=== PATIENT | female | born 1975 | race Caucasian/White ===

== ENCOUNTER → 2016-11-14 | Outpatient (CLI) | payer BC ==
[~2016-11-14] MED LIST: AMOXICILLIN500 M2 PO; AMOXICILLIN500 MG PO; AMOXIL250 MG/5 M PO; AMOXIL500 M1 PO; AUGMENTIN 875 M1 TAB PO; AUGMENTIN 875875 MG PO; BENTYL10 MG PO; CLARITIN10 MG PO; CORDROL20 MG PO; CYMBALTA30 MG PO; DEPLIN7.5 MG PO; DIFLUCAN150 MG PO; DIVALPROEX SOD500 M1 PO; Fioricet 325 MG1 TAB PO; HYDROCODONE BIT1 T11 PO; IBU-8800 MG PO; LEVOFLOXACIN500 MG PO; LITHIUM CARBON450 M1 PO; MACROBID100 M1 PO; MEDROL DOSEPAK4 MG PO; MOTRIN600 MG PO; MOTRIN800 MG PO; OLANZAPINE5 MG PO; PRISTIQ100 MG PO; PRISTIQUE PO; PROAIR HFA0.09 MG/AC IH; PROVENTIL0.09 MG/AC IH; REQUIP2 M2 PO; REXULTI4 MG PO; ROBITUSSIN AC 10 MG/ PO; ROPINIROLE HYDRO4 MG PO; TOPAMAX25 M1 PO; TRIMOX500 MG PO; VENLAFAXINE HY150 M2 PO; VIIBRYD40 PO; VYBRID PO; ZANTAC 150150 MG PO; ZITHROMAX Z PA250 MG PO; ZITHROMAX250 MG PO; ZOFRAN ODT4 MG SL; ZYPREXA20 MG PO; ZYRTEC10 MG PO; [UNRECOGNIZED DRUG - REMARK]; [UNRECOGNIZED DRUG - REMARK]
== END | disposition home or self-care (01) ==
LOC: LAB 09:13
DX: R10.31 Right lower quadrant pain (principal); R19.7 Diarrhea, unspecified

== ENCOUNTER 2017-12-12 13:26 | Emergency (ER) | payer BC ==
[~2017-12-12] VITALS: Ht 170.1 cm; Wt 136.1 kg
[2017-12-12] MEDS ORDERED: VISTARIL25 MG PO (13:33)
[2017-12-12] MEDS ORDERED: TRINTELLIX20 MG PO (13:33)
[2017-12-12] MEDS ORDERED: VRAYLAR4.5 MG PO (13:33)
[2017-12-12 13:54] LABS: BASO # 0.1 10*3/uL (0.0-0.1); BASO % 0.6 % (0.0-1.0); EOS # 0.1 10*3/uL (0.0-0.4); EOS % 0.9 % (1.0-4.0); HEMATOCRIT 42.1 % (37.0-47.0); HEMOGLOBIN 13.9 g/dl (12.0-16.0); LYMPH # 2.3 10*3/uL (1.3-4.4); LYMPH % 26.3 % (27.0-41.0); MEAN CELL VOLUME 85.6 fl (81.0-99.0); MEAN CORPUSCULAR HGB 28.3 pg (27.0-31.0); MEAN PLATELET VOLUME 10.3 fl (9.6-12.3); MONO # 0.7 10*3/uL (0.1-1.0); MONO % 7.4 % (3.0-9.0); NEUT # 5.7 10*3/uL (2.3-7.9); NEUT % 64.5 % (47.0-73.0); PLATELET COUNT AUTOMATED 270 10*3/uL (130-400); RED BLOOD COUNT 4.92 10*6/uL (4.10-5.10); RED CELL DISTRI WIDTH 13.7 % (0-14.5); WHITE BLOOD COUNT 8.8 10*3/uL (4.8-10.8)
[2017-12-12 13:56] LABS: BILIRUBIN NEGATIVE (NEGATIVE); BLOOD NEGATIVE (NEGATIVE); CLARITY SL CLOUDY (CLEAR); COLOR YELLOW (YELLOW); GLUCOSE NEGATIVE (NEGATIVE); KETONE NEGATIVE (NEGATIVE); LEUKO ESTERASE NEGATIVE (NEGATIVE); NITRITE NEGATIVE (NEGATIVE); PH 5.5 (5.0-9.0); SPECIFIC GRAVITY <= 1.005 (1.005-1.030); UROBILINOGEN 0.2 E.U./dl (0.2-1.0)
[2017-12-12 14:08] LABS: BACTERIA TRACE; EPITHELIAL CELLS 20-25; RBC 0-2 rbc/hpf (0-2); WBC 0-2 wbc/hpf (0-5)
[2017-12-12 14:21] LABS: ALBUMIN 4.1 gm/dl (3.1-4.5); ALKALINE PHOSPHATASE 94 U/L (45-117); BUN 10 mg/dl (7-24); CHLORIDE 104 mmol/L (98-107); SGOT/AST 20 IU/L (3-35); SGPT/ALT 36 U/L (12-78); SODIUM 140 mmol/L (136-145); TOTAL PROTEIN 7.4 gm/dL (6.4-8.2)
== END 2017-12-12 15:33 | disposition home or self-care (01) ==
LOC: ED 13:26
PROVIDERS: Nurse Practitioner Family
DX: R10.9 Unspecified abdominal pain (principal); F17.200 Nicotine dependence, unspecified, uncomplicated; Z79.899 Other long term (current) drug therapy; Z88.5 Allergy status to narcotic agent; Z88.2 Allergy status to sulfonamides; Z88.1 Allergy status to other antibiotic agents; Z88.6 Allergy status to analgesic agent; Z90.49 Acquired absence of other specified parts of digestive tract

== ENCOUNTER 2018-01-04 16:45 | Emergency (ER) | payer BC ==
[~2018-01-04] VITALS: Ht 170.1 cm; Wt 136.1 kg
[~2018-01-04 16:45] MED LIST changes: +TRINTELLIX20 MG PO; +VISTARIL25 MG PO; +VRAYLAR4.5 MG PO
[2018-01-04 17:16] LABS: BASO % 0.5 % (0.0-1.0); EOS # 0.1 10*3/uL (0.0-0.4); EOS % 0.7 % (1.0-4.0); HEMATOCRIT 41.1 % (37.0-47.0); HEMOGLOBIN 13.3 g/dl (12.0-16.0); LYMPH # 1.8 10*3/uL (1.3-4.4); LYMPH % 24.1 % (27.0-41.0); MEAN CORPUSCULAR HGB 27.2 pg (27.0-31.0); MEAN CORPUSCULAR HGB CONC 32.4 g/dl (33.0-37.0); MEAN PLATELET VOLUME 9.4 fl (9.6-12.3); MONO # 0.5 10*3/uL (0.1-1.0); MONO % 6.6 % (3.0-9.0); NEUT % 67.7 % (47.0-73.0); PLATELET COUNT AUTOMATED 262 10*3/uL (130-400); RED BLOOD COUNT 4.89 10*6/uL (4.10-5.10); RED CELL DISTRI WIDTH 13.6 % (0-14.5); WHITE BLOOD COUNT 7.4 10*3/uL (4.8-10.8)
[2018-01-04 17:31] LABS: ALBUMIN 3.7 gm/dl (3.1-4.5); ALKALINE PHOSPHATASE 92 U/L (45-117); BUN 9 mg/dl (7-24); CHLORIDE 102 mmol/L (98-107); CREATININE 0.88 mg/dL (0.55-1.02); LIPASE 128 U/L (73-393); POTASSIUM 4.1 mmol/L (3.5-5.1); SGOT/AST 16 IU/L (3-35); SGPT/ALT 28 U/L (12-78); SODIUM 137 mmol/L (136-145); TOTAL PROTEIN 7.4 gm/dL (6.4-8.2)
[2018-01-04 18:03] LABS: BILIRUBIN NEGATIVE (NEGATIVE); BLOOD NEGATIVE (NEGATIVE); CLARITY SL CLOUDY (CLEAR); COLOR YELLOW (YELLOW); GLUCOSE NEGATIVE (NEGATIVE); KETONE NEGATIVE (NEGATIVE); LEUKO ESTERASE NEGATIVE (NEGATIVE); NITRITE NEGATIVE (NEGATIVE); UROBILINOGEN 0.2 E.U./dl (0.2-1.0)
[2018-01-04 18:09] LABS: BACTERIA 3+
[2018-01-04 18:11] LABS: EPITHELIAL CELLS 21-30
== END 2018-01-04 19:12 | disposition home or self-care (01) ==
LOC: ED 16:45
PROVIDERS: Physician Assistant
DX: R11.2 Nausea with vomiting, unspecified (principal); T43.295A Adverse effect of other antidepressants, initial encounter; F17.200 Nicotine dependence, unspecified, uncomplicated; Z88.2 Allergy status to sulfonamides; Z88.1 Allergy status to other antibiotic agents; Z88.6 Allergy status to analgesic agent; Z79.899 Other long term (current) drug therapy; Y92.89 Other specified places as the place of occurrence of the external cause

== ENCOUNTER → 2018-05-14 | Outpatient (CLI) | payer SELFPAY | END | disposition home or self-care (01) | LOC: US 07:19 | DX: M79.605 Pain in left leg (principal); M79.604 Pain in right leg; R60.9 Edema, unspecified; R20.2 Paresthesia of skin; Z79.899 Other long term (current) drug therapy ==

== ENCOUNTER 2018-08-06 22:08 | Emergency (ER) | payer BC ==
[~2018-08-06] VITALS: Ht 152.4 cm; Wt 127.0 kg
--- NOTE | ~2018-08-06 | EKG ---
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
[2018-08-06 22:58] LABS: BASO # 0.1 10*3/uL (0.0-0.1); BASO % 0.8 % (0.0-1.0); EOS # 0.2 10*3/uL (0.0-0.4); EOS % 2.2 % (1.0-4.0); LYMPH # 2.5 10*3/uL (1.3-4.4); LYMPH % 28.3 % (27.0-41.0); MEAN CELL VOLUME 86.2 fl (81.0-99.0); MEAN CORPUSCULAR HGB CONC 32.5 g/dl (33.0-37.0); MEAN PLATELET VOLUME 9.3 fl (9.6-12.3); MONO # 0.5 10*3/uL (0.1-1.0); MONO % 6.1 % (3.0-9.0); NEUT # 5.4 10*3/uL (2.3-7.9); NEUT % 61.9 % (47.0-73.0); PLATELET COUNT AUTOMATED 317 10*3/uL (130-400); RED BLOOD COUNT 4.64 10*6/uL (4.10-5.10); RED CELL DISTRI WIDTH 13.8 % (0-14.5); WHITE BLOOD COUNT 8.7 10*3/uL (4.8-10.8)
[2018-08-06 23:08] LABS: ACT PARTIAL THROMBO TIME 24.8 SECONDS (20.8-31.5)
[2018-08-06 23:14] LABS: ALBUMIN 3.4 gm/dl (3.1-4.5); ALKALINE PHOSPHATASE 93 U/L (45-117); BUN 17 mg/dl (7-24); CHLORIDE 104 mmol/L (98-107); CREATININE 0.78 mg/dL (0.55-1.02); POTASSIUM 4.3 mmol/L (3.5-5.1); SGOT/AST 16 IU/L (3-35); SGPT/ALT 21 U/L (12-78); SODIUM 139 mmol/L (136-145); TOTAL PROTEIN 7.4 gm/dL (6.4-8.2)
[2018-08-06 23:19] LABS: COLOR YELLOW (YELLOW)
[2018-08-06 23:20] LABS: BILIRUBIN NEGATIVE (NEGATIVE); BLOOD NEGATIVE (NEGATIVE); CLARITY CLEAR (CLEAR); GLUCOSE NEGATIVE (NEGATIVE); KETONE NEGATIVE (NEGATIVE); LEUKO ESTERASE NEGATIVE (NEGATIVE); NITRITE NEGATIVE (NEGATIVE); UROBILINOGEN 0.2 E.U./dl (0.2-1.0)
[2018-08-06 23:23] LABS: EPITHELIAL CELLS 15-20; RBC 0-2 rbc/hpf (0-2); WBC 0-2 wbc/hpf (0-5)
[2018-08-07] MEDS ORDERED: DOXYCYCLINE100 M3 PO (00:32)
[2018-08-07] MEDS ORDERED: Fioricet 325 MG1 TAB PO (01:47)
[2018-08-07] MEDS ORDERED: REGLAN10 M1 PO (01:47)
== END 2018-08-07 01:57 | disposition home or self-care (01) ==
LOC: ED 22:08
PROVIDERS: Nurse Practitioner
DX: G43.909 Migraine, unspecified, not intractable, without status migrainosus (principal); R09.81 Nasal congestion; F17.200 Nicotine dependence, unspecified, uncomplicated; Z88.2 Allergy status to sulfonamides; Z88.6 Allergy status to analgesic agent; Z88.5 Allergy status to narcotic agent; Z79.899 Other long term (current) drug therapy

== ENCOUNTER 2018-09-10 15:07 | Emergency (ER) | payer BC ==
[~2018-09-10] VITALS: Ht 170.1 cm; Wt 127.0 kg
[~2018-09-10 15:07] MED LIST changes: +DOXYCYCLINE100 M3 PO; +REGLAN10 M1 PO
[2018-09-10] MEDS ORDERED: ROBITUSSIN DM 105 ML PO (17:18)
[2018-09-10] MEDS ORDERED: PREDNISONE20 M1 PO (17:18)
[2018-09-10] MEDS ORDERED: AMOXICILLIN500 M2 PO (17:18)
== END 2018-09-10 17:30 | disposition home or self-care (01) ==
LOC: ED 15:07
DX: J20.9 Acute bronchitis, unspecified (principal); F17.200 Nicotine dependence, unspecified, uncomplicated; Z88.2 Allergy status to sulfonamides; Z88.6 Allergy status to analgesic agent; Z88.1 Allergy status to other antibiotic agents; Z98.890 Other specified postprocedural states; Z79.899 Other long term (current) drug therapy; Z79.2 Long term (current) use of antibiotics

== ENCOUNTER 2018-09-16 01:52 | Emergency (ER) | payer BC ==
[~2018-09-16] VITALS: Ht 170.1 cm; Wt 127.0 kg
--- NOTE | ~2018-09-16 | EKG ---
[place], [place] ELECTROCARDIOGRAM REPORT NAME: JIA OLSON UNIT #: [id number] ROOM: DOCTOR: SHERWIN DRAFT REPORT BIRTHDATE: [birth year] [facility] Test Date: 2018-09-16 Test Time: 02:14:06 Pat Name: JIA OLSON Department: Room: [facility] Gender: F Regulatory Affairs Strategy Specialist: Bebeto Dye : 1975 Requested By: HIEN MARES Order Number: [id number] Reading MD: Zahida Wong MD Measurements Intervals [place] Rate: 89 P: 9 MA: 127 QRS: 38 QRSD: 98 T: 19 QT: 399 QTc: 486 Interpretive Statements Sinus rhythm Low voltage, precordial leads PRWP Compared to ECG 08/06/2018 23:25:49 Low QRS voltage now present Myocardial infarct finding still present Electronically Signed On 09-16-2018 14:25:35 PST by Zahida Wong MD CM:EKGRPT:ELECTROCARDIOGRAM REPORT 0214 1425 HIEN BUSH DRAFT REPORT HIEN MARES DO
[~2018-09-16 01:52] MED LIST changes: +PREDNISONE20 M1 PO; +ROBITUSSIN DM 105 ML PO
[2018-09-16 01:53] VITALS: BP 135/67
[2018-09-16 02:27] LABS: BASO # 0.1 10*3/uL (0.0-0.1); BASO % 0.5 % (0.0-1.0); EOS # 0.2 10*3/uL (0.0-0.4); EOS % 1.7 % (1.0-4.0); HEMATOCRIT 41.5 % (37.0-47.0); HEMOGLOBIN 13.1 g/dl (12.0-16.0); LYMPH # 3.6 10*3/uL (1.3-4.4); LYMPH % 33.9 % (27.0-41.0); MEAN CORPUSCULAR HGB 27.5 pg (27.0-31.0); MEAN CORPUSCULAR HGB CONC 31.6 g/dl (33.0-37.0); MEAN PLATELET VOLUME 9.1 fl (9.6-12.3); MONO # 0.4 10*3/uL (0.1-1.0); MONO % 4.1 % (3.0-9.0); NEUT # 6.2 10*3/uL (2.3-7.9); PLATELET COUNT AUTOMATED 366 10*3/uL (130-400); RED BLOOD COUNT 4.77 10*6/uL (4.10-5.10); RED CELL DISTRI WIDTH 14.6 % (0-14.5); WHITE BLOOD COUNT 10.5 10*3/uL (4.8-10.8)
[2018-09-16 02:45] LABS: ALBUMIN 3.4 gm/dl (3.1-4.5); ALKALINE PHOSPHATASE 96 U/L (45-117); BUN 13 mg/dl (7-24); CHLORIDE 104 mmol/L (98-107); CREATININE 0.88 mg/dL (0.55-1.02); POTASSIUM 3.9 mmol/L (3.5-5.1); SGOT/AST 32 IU/L (3-35); SGPT/ALT 28 U/L (12-78); SODIUM 139 mmol/L (136-145); TOTAL PROTEIN 7.3 gm/dL (6.4-8.2)
[2018-09-16 02:48] LABS: BETA-HCG, QUANT < 1.0 mIU/mL (1-3); TROPONIN I < 0.015 ng/ml (<0.045)
[2018-09-16] MEDS ORDERED: PREDNISONE20 M1 PO (03:30)
[2018-09-16] MEDS ORDERED: LEVAQUIN500 M2 PO (03:30)
[2018-09-16 03:34] VITALS: BP 128/65
[2018-09-17] MEDS ORDERED: PAXIL40 M1 PO (22:13)
== END 2018-09-16 03:53 | disposition home or self-care (01) ==
LOC: ED 01:52 → EDHOLD 03:16 → ED 03:53
PROVIDERS: Student in an Organized Health Care Education/Training Program
DX: J44.1 Chronic obstructive pulmonary disease with (acute) exacerbation (principal); G43.909 Migraine, unspecified, not intractable, without status migrainosus; Z88.2 Allergy status to sulfonamides; Z88.1 Allergy status to other antibiotic agents; Z88.6 Allergy status to analgesic agent; Z79.899 Other long term (current) drug therapy

== ENCOUNTER 2018-09-17 19:40 | Inpatient (IN) | payer BC ==
[~2018-09-17] VITALS: Ht 170.1 cm; Wt 134.6 kg
--- NOTE | ~2018-09-17 | EKG ---
[place], [place] ELECTROCARDIOGRAM REPORT NAME: JIA OLSON UNIT #: [id number] ROOM: DOCTOR: SHERWIN DRAFT REPORT BIRTHDATE: [birth year] [facility] Test Date: 2018-09-17 Test Time: 20:00:12 Pat Name: JIA OLSON Department: Room: Gender: F Mobility Engineer: MARELY : 1975 Requested By: HIEN MARES Order Number: [id number] Reading MD: Measurements Intervals [place] Rate: 103 P: 40 LA: 141 QRS: 54 QRSD: 93 T: 28 QT: 347 QTc: 454 Interpretive Statements Sinus tachycardia Consider anterior infarct Compared to ECG 09/16/2018 02:14:06 Myocardial infarct finding now present Sinus rhythm no longer present CM:EKGRPT:ELECTROCARDIOGRAM REPORT 99 01 HIEN BUSH DRAFT REPORT HIEN MARES DO
[~2018-09-17 19:40] MED LIST changes: +LEVAQUIN500 M2 PO
[2018-09-17 19:43] VITALS: BP 132/66
[2018-09-17 20:07] LABS: HEMATOCRIT 40.8 % (37.0-47.0); HEMOGLOBIN 12.9 g/dl (12.0-16.0); MEAN CELL VOLUME 87.9 fl (81.0-99.0); MEAN CORPUSCULAR HGB 27.8 pg (27.0-31.0); MEAN CORPUSCULAR HGB CONC 31.6 g/dl (33.0-37.0); MEAN PLATELET VOLUME 9.5 fl (9.6-12.3); PLATELET COUNT AUTOMATED 378 10*3/uL (130-400); RED BLOOD COUNT 4.64 10*6/uL (4.10-5.10)
[2018-09-17 20:17] VITALS: BP 118/66
[2018-09-17 20:25] LABS: ALBUMIN 3.2 gm/dl (3.1-4.5); ALKALINE PHOSPHATASE 79 U/L (45-117); BUN 13 mg/dl (7-24); CHLORIDE 108 mmol/L (98-107); CREATININE 1.01 mg/dL (0.55-1.02); SGOT/AST 22 IU/L (3-35); SGPT/ALT 23 U/L (12-78); SODIUM 140 mmol/L (136-145); TOTAL PROTEIN 7.3 gm/dL (6.4-8.2)
[2018-09-17 20:26] LABS: BETA-HCG, QUANT < 1.0 mIU/mL (1-3); POTASSIUM 5.1 mmol/L (3.5-5.1); TROPONIN I < 0.015 ng/ml (<0.045)
[2018-09-17 20:30] LABS: ACT PARTIAL THROMBO TIME 21.5 SECONDS (20.8-31.5)
[2018-09-17 20:32] LABS: TOTAL CELLS COUNTED 100 #CELLS
[2018-09-17 20:33] LABS: PLATELET SUFFICIENCY NORMAL (NORMAL)
[2018-09-17 20:57] VITALS: BP 128/72
[2018-09-17 21:23] VITALS: BP 127/68
[2018-09-17 21:45] VITALS: BP 114/74
[2018-09-17 21:53] VITALS: BP 127/68
[2018-09-17] MEDS ORDERED: PAXIL40 M1 PO (22:13)
[2018-09-18] VITALS: BP 125/88
[2018-09-18] MEDS ORDERED: PAXIL20 M1 PO (02:45)
[2018-09-18 06:33] LABS: HEMATOCRIT 38.3 % (37.0-47.0); HEMOGLOBIN 11.8 g/dl (12.0-16.0); MEAN CELL VOLUME 88.9 fl (81.0-99.0); MEAN CORPUSCULAR HGB 27.4 pg (27.0-31.0); MEAN CORPUSCULAR HGB CONC 30.8 g/dl (33.0-37.0); MEAN PLATELET VOLUME 9.6 fl (9.6-12.3); PLATELET COUNT AUTOMATED 320 10*3/uL (130-400); RED BLOOD COUNT 4.31 10*6/uL (4.10-5.10); RED CELL DISTRI WIDTH 15.1 % (0-14.5); WHITE BLOOD COUNT 13.2 10*3/uL (4.8-10.8)
[2018-09-18 06:52] LABS: ALKALINE PHOSPHATASE 67 U/L (45-117); BUN 12 mg/dl (7-24); CHLORIDE 109 mmol/L (98-107); CHOLESTEROL 183 mg/dL (<200); CREATININE 0.84 mg/dL (0.55-1.02); HDL CHOLESTEROL 75 mg/dl (40-60); LDL CHOLESTEROL 96 mg/dL (9-159); PHOSPHOROUS 2.9 mg/dL (2.5-4.9); POTASSIUM 4.9 mmol/L (3.5-5.1); SGOT/AST 8 IU/L (3-35); SGPT/ALT 20 U/L (12-78); SODIUM 139 mmol/L (136-145); TOTAL PROTEIN 6.5 gm/dL (6.4-8.2); TRIGLYCERIDES 60 mg/dl (<150); VLDL CHOLESTEROL 12 mg/dL (6-40)
[2018-09-18 06:57] LABS: THYROID STIM HORMONE (HS) 0.073 uIU/ml (0.358-4.75)
[2018-09-18 07:05] LABS: PLATELET SUFFICIENCY NORMAL (NORMAL); TOTAL CELLS COUNTED 100 #CELLS
[2018-09-18 08:19] LABS: VITAMIN D, 25-HYDROXY 17.6 ng/mL (30-100)
[2018-09-18] MEDS ORDERED: PREDNISONE10 MG PO (12:32)
[2018-09-18] MEDS ORDERED: MUCINEX ER600 MG PO (12:32)
[2018-09-18] MEDS ORDERED: LEVAQUIN750 M1 PO (12:32)
[2018-09-18] MEDS ORDERED: VENTOLIN 02.5 MG/3 M INH (12:33)
== END 2018-09-18 13:27 | disposition home or self-care (01) | DRG 871 ==
LOC: ED 19:40 → EDHOLD 21:03 → 4E 21:22
PROVIDERS: Internal Medicine; Student in an Organized Health Care Education/Training Program
DX: A41.9 Sepsis, unspecified organism (principal); J18.9 Pneumonia, unspecified organism; J44.1 Chronic obstructive pulmonary disease with (acute) exacerbation; F41.9 Anxiety disorder, unspecified; F17.200 Nicotine dependence, unspecified, uncomplicated; K21.9 Gastro-esophageal reflux disease without esophagitis; F32.9 Major depressive disorder, single episode, unspecified; G43.909 Migraine, unspecified, not intractable, without status migrainosus; J44.0 Chronic obstructive pulmonary disease with (acute) lower respiratory infection; R65.20 Severe sepsis without septic shock; Z79.899 Other long term (current) drug therapy; Z78.9 Other specified health status; Z88.2 Allergy status to sulfonamides; Z88.1 Allergy status to other antibiotic agents; Z88.6 Allergy status to analgesic agent; Z88.8 Allergy status to other drugs, medicaments and biological substances; Z88.5 Allergy status to narcotic agent; Z82.5 Family history of asthma and other chronic lower respiratory diseases; Z79.51 Long term (current) use of inhaled steroids; Z79.2 Long term (current) use of antibiotics

== ENCOUNTER → 2018-11-09 | Outpatient (CLI) | payer BC ==
[~2018-11-09] MED LIST changes: +LEVAQUIN750 M1 PO; +MUCINEX ER600 MG PO; +PAXIL20 M1 PO; +PAXIL40 M1 PO; +PREDNISONE10 MG PO; +VENTOLIN 02.5 MG/3 M INH
== END | disposition home or self-care (01) ==
LOC: RAD 12:43
DX: M89.8X1 Other specified disorders of bone, shoulder (principal); J44.9 Chronic obstructive pulmonary disease, unspecified; F17.210 Nicotine dependence, cigarettes, uncomplicated

== ENCOUNTER 2019-01-09 19:00 | Emergency (ER) | payer BC ==
[~2019-01-09] VITALS: Ht 170.1 cm; Wt 131.5 kg
[2019-01-11] MEDS ORDERED: PREDNISONE50 MG PO (14:46)
[2019-01-11] MEDS ORDERED: AVPAK AZITHROM250 MG PO (14:46)
[2019-01-11] MEDS ORDERED: MUCINEX1200 M1 PO (14:46)
== END 2019-01-09 21:55 | disposition left against medical advice (07) ==
LOC: ED 19:00
DX: R05 Cough (principal); R09.81 Nasal congestion; K21.9 Gastro-esophageal reflux disease without esophagitis; G43.909 Migraine, unspecified, not intractable, without status migrainosus; F17.200 Nicotine dependence, unspecified, uncomplicated; Z53.21 Procedure and treatment not carried out due to patient leaving prior to being seen by health care provider

== ENCOUNTER 2019-01-18 20:28 | Emergency (ER) | payer BC ==
[~2019-01-18] VITALS: Ht 170.1 cm; Wt 131.5 kg
[~2019-01-18 20:28] MED LIST changes: +AVPAK AZITHROM250 MG PO; +MUCINEX1200 M1 PO; +PREDNISONE50 MG PO
[2019-01-18] MEDS ORDERED: CELEXA10 MG PO (20:31)
[2019-01-18] MEDS ORDERED: CYCLOBENZAPRINE10 MG PO (20:40)
== END 2019-01-18 21:00 | disposition home or self-care (01) ==
LOC: ED 20:28
DX: M54.9 Dorsalgia, unspecified (principal); M25.551 Pain in right hip; J44.9 Chronic obstructive pulmonary disease, unspecified; G43.909 Migraine, unspecified, not intractable, without status migrainosus; E66.01 Morbid (severe) obesity due to excess calories; F17.200 Nicotine dependence, unspecified, uncomplicated; Z88.2 Allergy status to sulfonamides; Z88.6 Allergy status to analgesic agent; Z88.1 Allergy status to other antibiotic agents; Z79.899 Other long term (current) drug therapy; Z90.49 Acquired absence of other specified parts of digestive tract

== ENCOUNTER → 2019-01-28 | Outpatient (CLI) | payer BC ==
[~2019-01-28] MED LIST changes: +CELEXA10 MG PO; +CYCLOBENZAPRINE10 MG PO
== END | disposition home or self-care (01) ==
LOC: RAD 17:44
DX: M16.11 Unilateral primary osteoarthritis, right hip (principal); M51.37 Other intervertebral disc degeneration, lumbosacral region; R20.0 Anesthesia of skin

== ENCOUNTER 2019-07-27 20:00 | Emergency (ER) | payer SELFPAY ==
[~2019-07-27] VITALS: Ht 170.1 cm; Wt 131.5 kg
[2019-07-27 20:28] LABS: BILIRUBIN NEGATIVE (NEGATIVE); BLOOD 1+ (NEGATIVE); CLARITY SL CLOUDY (CLEAR); COLOR YELLOW (YELLOW); GLUCOSE NEGATIVE (NEGATIVE); KETONE NEGATIVE (NEGATIVE); LEUKO ESTERASE NEGATIVE (NEGATIVE); NITRITE NEGATIVE (NEGATIVE); PH 5.5 (5.0-9.0); SPECIFIC GRAVITY >= 1.030 (1.005-1.030); UROBILINOGEN 0.2 E.U./dl (0.2-1.0)
[2019-07-27 20:30] LABS: BACTERIA 1+
[2019-07-27 20:31] LABS: RBC 0-2 rbc/hpf (0-2); WBC 0-2 wbc/hpf (0-5)
[2019-07-27 20:33] LABS: URINE AMPHETAMINES < 1000 (1000ng/ml); URINE BARBITURATES < 200 (200ng/ml); URINE BENZODIAZEPINES < 200 (200ng/ml); URINE CANNABINOIDS (THC) < 50 (50ng/ml); URINE COCAINE < 300 (300ng/ml); URINE METHADONE < 300 (300ng/ml); URINE OPIATES < 300 (300ng/ml)
[2019-07-27 20:35] LABS: URINE PHENCYCLIDINE < 25 (25ng/ml)
== END 2019-07-27 21:48 ==
LOC: ED 20:00
PROVIDERS: Emergency Medicine
DX: S09.90XA Unspecified injury of head, initial encounter (principal); M54.2 Cervicalgia; F17.200 Nicotine dependence, unspecified, uncomplicated; Z88.2 Allergy status to sulfonamides; Z88.6 Allergy status to analgesic agent; Z88.1 Allergy status to other antibiotic agents; Z88.8 Allergy status to other drugs, medicaments and biological substances; Z79.899 Other long term (current) drug therapy; Z90.49 Acquired absence of other specified parts of digestive tract; Y04.2XXA Assault by strike against or bumped into by another person, initial encounter; Y93.89 Activity, other specified; Y92.098 Other place in other non-institutional residence as the place of occurrence of the external cause; Y99.8 Other external cause status

== ENCOUNTER → 2019-08-08 | Outpatient (CLI) | payer SELFPAY | END | disposition home or self-care (01) | LOC: CT 09:33 | DX: S09.90XA Unspecified injury of head, initial encounter (principal); R51 Headache; X58.XXXA Exposure to other specified factors, initial encounter; Y93.89 Activity, other specified; Y92.89 Other specified places as the place of occurrence of the external cause; Y99.8 Other external cause status ==

== ENCOUNTER 2019-12-15 23:33 | Emergency (ER) | payer BC ==
[~2019-12-15] VITALS: Ht 170.1 cm; Wt 127.0 kg
[2019-12-16] MEDS ORDERED: ROPINIROLE HYDRO4 MG PO (00:13)
[2019-12-16] MEDS ORDERED: BUSPIRONE HCL10 MG PO (00:13)
[2019-12-16] MEDS ORDERED: FLONASE ALLERG9.9 ML NAS (00:30)
[2019-12-16] MEDS ORDERED: AUGMENTIN 875875 MG PO (00:30)
== END 2019-12-16 01:00 | disposition home or self-care (01) ==
LOC: ED 23:33
DX: J06.9 Acute upper respiratory infection, unspecified (principal); F41.9 Anxiety disorder, unspecified; F32.9 Major depressive disorder, single episode, unspecified; K21.9 Gastro-esophageal reflux disease without esophagitis; F17.200 Nicotine dependence, unspecified, uncomplicated; Z88.8 Allergy status to other drugs, medicaments and biological substances; Z88.5 Allergy status to narcotic agent; Z79.899 Other long term (current) drug therapy

== ENCOUNTER 2019-12-31 14:33 | Emergency (ER) | payer BC ==
[~2019-12-31] VITALS: Ht 170.1 cm; Wt 126.6 kg
[~2019-12-31 14:33] MED LIST changes: +BUSPIRONE HCL10 MG PO; +FLONASE ALLERG9.9 ML NAS
[2019-12-31 15:00] LABS: BASO # 0.1 10*3/uL (0.0-0.1); BASO % 1.1 % (0.0-1.0); EOS # 0.1 10*3/uL (0.0-0.4); EOS % 1.2 % (1.0-4.0); HEMATOCRIT 45.7 % (37.0-47.0); HEMOGLOBIN 14.5 g/dl (12.0-16.0); LYMPH # 1.7 10*3/uL (1.3-4.4); LYMPH % 26.2 % (27.0-41.0); MEAN CELL VOLUME 90.5 fl (81.0-99.0); MEAN CORPUSCULAR HGB 28.7 pg (27.0-31.0); MEAN CORPUSCULAR HGB CONC 31.7 g/dl (33.0-37.0); MONO # 0.6 10*3/uL (0.1-1.0); MONO % 9.4 % (3.0-9.0); NEUT # 4.1 10*3/uL (2.3-7.9); NEUT % 61.9 % (47.0-73.0); PLATELET COUNT AUTOMATED 246 10*3/uL (130-400); RED BLOOD COUNT 5.05 10*6/uL (4.10-5.10); RED CELL DISTRI WIDTH 13.5 % (0-14.5); WHITE BLOOD COUNT 6.6 10*3/uL (4.8-10.8)
[2019-12-31 15:10] LABS: ACT PARTIAL THROMBO TIME 25.6 SECONDS (20.0-32.1)
[2019-12-31 15:21] LABS: ALBUMIN 3.7 gm/dl (3.1-4.5); ALKALINE PHOSPHATASE 83 U/L (45-117); BUN 13 mg/dl (7-24); CHLORIDE 108 mmol/L (98-107); CREATININE 1.05 mg/dL (0.55-1.02); POTASSIUM 4.2 mmol/L (3.5-5.1); SGOT/AST 16 IU/L (3-35); SGPT/ALT 29 U/L (12-78); SODIUM 142 mmol/L (136-145); TOTAL PROTEIN 7.6 gm/dL (6.4-8.2)
[2019-12-31 15:26] LABS: TROPONIN I < 0.015 ng/ml (<0.045)
== END 2019-12-31 18:53 | disposition home or self-care (01) ==
LOC: ED 14:33
PROVIDERS: Emergency Medicine
DX: R07.89 Other chest pain (principal); I10 Essential (primary) hypertension; F32.9 Major depressive disorder, single episode, unspecified; F41.9 Anxiety disorder, unspecified; K21.9 Gastro-esophageal reflux disease without esophagitis; G43.909 Migraine, unspecified, not intractable, without status migrainosus; Z88.8 Allergy status to other drugs, medicaments and biological substances; Z88.5 Allergy status to narcotic agent; Z79.899 Other long term (current) drug therapy; Z90.49 Acquired absence of other specified parts of digestive tract; Z87.891 Personal history of nicotine dependence

== ENCOUNTER → 2022-11-08 | Outpatient (CLI) | payer SELFPAY | END | disposition home or self-care (01) | LOC: RAD 16:04 | PROVIDERS: ATTEND Internal Medicine | DX: M47.817 Spondylosis without myelopathy or radiculopathy, lumbosacral region (principal); M51.36 Other intervertebral disc degeneration, lumbar region; M54.42 Lumbago with sciatica, left side ==

== ENCOUNTER 2023-03-28 16:03 | Emergency (ER) | payer SELFPAY ==
[~2023-03-28] VITALS: Ht 165.1 cm; Wt 120.2 kg
== END 2023-03-28 18:13 | disposition left against medical advice (07) ==
LOC: ED 16:03
DX: M79.602 Pain in left arm (principal); Z53.21 Procedure and treatment not carried out due to patient leaving prior to being seen by health care provider

== ENCOUNTER 2023-03-28 20:19 | Emergency (ER) | payer SELFPAY | END 2023-03-28 20:36 | disposition left against medical advice (07) | LOC: ED 20:19 | DX: M79.602 Pain in left arm (principal); R51.9 Headache, unspecified; M54.2 Cervicalgia; Z53.21 Procedure and treatment not carried out due to patient leaving prior to being seen by health care provider ==

== ENCOUNTER 2023-11-16 19:29 | Emergency (ER) | payer MEDICAID ==
[~2023-11-16] VITALS: Ht 167.6 cm; Wt 117.9 kg
[2023-11-16] MEDS ORDERED: CAPLYTA42 MG PO (19:54)
[2023-11-16] MEDS ORDERED: ZESTRIL30 M3 PO (19:55)
[2023-11-16] MEDS ORDERED: BUSPIRONE15 MG PO (19:55)
[2023-11-16] MEDS ORDERED: TRINTELLIX10 MG PO (19:55)
[2023-11-16] MEDS ORDERED: MELOXICAM15 MG PO (19:56)
[2023-11-16] MEDS ORDERED: CEPHALEXIN500 M1 PO (20:45)
== END 2023-11-16 20:52 | disposition home or self-care (01) ==
LOC: ED 19:29
DX: S61.211A Laceration without foreign body of left index finger without damage to nail, initial encounter (principal); F17.200 Nicotine dependence, unspecified, uncomplicated; Z88.2 Allergy status to sulfonamides; Z88.6 Allergy status to analgesic agent; Z88.8 Allergy status to other drugs, medicaments and biological substances; Z90.49 Acquired absence of other specified parts of digestive tract; W26.8XXA Contact with other sharp object(s), not elsewhere classified, initial encounter; Y93.89 Activity, other specified; Y92.89 Other specified places as the place of occurrence of the external cause; Y99.8 Other external cause status

== ENCOUNTER 2023-11-29 11:22 | Emergency (ER) | payer MEDICAID ==
[~2023-11-29] VITALS: Ht 170.1 cm; Wt 113.4 kg
[~2023-11-29 11:22] MED LIST changes: +BUSPIRONE15 MG PO; +CAPLYTA42 MG PO; +CEPHALEXIN500 M1 PO; +MELOXICAM15 MG PO; +TRINTELLIX10 MG PO; +ZESTRIL30 M3 PO
[2023-11-29] MEDS ORDERED: Ketorolac Tromethamine 30 MG/ML VIAL IM ONE (12:55)
[2023-11-29] MEDS ORDERED: Motrin,Rufen800 MG PO (13:45)
== END 2023-11-29 13:55 | disposition home or self-care (01) ==
LOC: ED 11:22
DX: M25.562 Pain in left knee (principal); F41.9 Anxiety disorder, unspecified; J44.9 Chronic obstructive pulmonary disease, unspecified; F32.A Depression, unspecified; E78.00 Pure hypercholesterolemia, unspecified; R73.9 Hyperglycemia, unspecified; G43.909 Migraine, unspecified, not intractable, without status migrainosus; Z90.49 Acquired absence of other specified parts of digestive tract; Z87.891 Personal history of nicotine dependence; K21.9 Gastro-esophageal reflux disease without esophagitis; Z88.2 Allergy status to sulfonamides; Z88.6 Allergy status to analgesic agent; Z88.5 Allergy status to narcotic agent; Z88.8 Allergy status to other drugs, medicaments and biological substances

== ENCOUNTER → 2024-02-26 | Outpatient (CLI) | payer MEDICAID ==
[~2024-02-26] MED LIST changes: +Motrin,Rufen800 MG PO
[2024-02-26 13:38] LABS: BASO # 0.1 10*3/uL (0.0-0.1); BASO % 0.7 % (0.0-1.0); EOS # 0.1 10*3/uL (0.0-0.4); HEMATOCRIT 44.6 % (37.0-47.0); LYMPH # 1.8 10*3/uL (1.3-4.4); LYMPH % 21.8 % (27.0-41.0); MEAN CELL VOLUME 91.6 fl (81.0-99.0); MEAN CORPUSCULAR HGB 29.6 pg (27.0-31.0); MEAN CORPUSCULAR HGB CONC 32.3 g/dl (33.0-37.0); MEAN PLATELET VOLUME 9.7 fl (9.6-12.3); MONO # 0.4 10*3/uL (0.1-1.0); MONO % 5.4 % (3.0-9.0); NEUT # 5.7 10*3/uL (2.3-7.9); NEUT % 70.9 % (47.0-73.0); PLATELET COUNT AUTOMATED 257 10*3/uL (130-400); RED BLOOD COUNT 4.87 10*6/uL (4.10-5.10); RED CELL DISTRI WIDTH 12.9 % (0-14.5); WHITE BLOOD COUNT 8.1 10*3/uL (4.8-10.8)
[2024-02-26 14:23] LABS: ALKALINE PHOSPHATASE 79 U/L (46-116); BUN 8 mg/dl (9-23); CHLORIDE 103 mmol/L (98-107); POTASSIUM 3.5 mmol/L (3.4-5.1); SGPT/ALT 12 U/L (5-49); TOTAL PROTEIN 6.8 gm/dL (6.0-8.0)
[2024-02-26 14:25] LABS: VITAMIN D, 25-HYDROXY 16.4 ng/mL (30-100)
== END | disposition home or self-care (01) ==
LOC: LAB 13:10
PROVIDERS: ATTEND Nurse Practitioner Psychiatric/Mental Health
DX: Z51.81 Encounter for therapeutic drug level monitoring (principal); Z79.899 Other long term (current) drug therapy

== ENCOUNTER 2024-06-13 16:28 | Emergency (ER) | payer MEDICAID ==
[~2024-06-13] VITALS: Ht 167.6 cm; Wt 117.9 kg
[2024-06-13 19:07] LABS: BILIRUBIN Negative (Negative); BLOOD Negative (Negative); CLARITY Cloudy (Clear); COLOR Yellow (Yellow); GLUCOSE Negative (Negative); KETONE Negative (Negative); LEUKO ESTERASE Negative (Negative); NITRITE Negative (Negative); PH 5.5 (4.5-8.0); SPECIFIC GRAVITY 1.015 (1.001-1.030); UROBILINOGEN 0.2 E.U./dl (0.0-1.0)
[2024-06-13 19:14] LABS: BACTERIA 1+; WBC 0-2 wbc/hpf (0-5)
[2024-06-13] MEDS ORDERED: METHOCARBAMOL500 M1 PO (19:25)
== END 2024-06-13 19:29 | disposition home or self-care (01) ==
LOC: ED 16:28
PROVIDERS: Physician Assistant Medical
DX: J02.8 Acute pharyngitis due to other specified organisms (principal); M54.50 Low back pain, unspecified; M54.2 Cervicalgia; R30.0 Dysuria; R39.15 Urgency of urination; F32.A Depression, unspecified; F41.9 Anxiety disorder, unspecified; K21.9 Gastro-esophageal reflux disease without esophagitis; I10 Essential (primary) hypertension; G43.909 Migraine, unspecified, not intractable, without status migrainosus; F17.200 Nicotine dependence, unspecified, uncomplicated; Z88.2 Allergy status to sulfonamides; Z88.5 Allergy status to narcotic agent; Z88.8 Allergy status to other drugs, medicaments and biological substances; Z90.49 Acquired absence of other specified parts of digestive tract

== ENCOUNTER 2024-07-21 20:15 | Emergency (ER) | payer MEDICAID ==
[~2024-07-21] VITALS: Ht 165.1 cm; Wt 117.9 kg
[~2024-07-21 20:15] MED LIST changes: +METHOCARBAMOL500 M1 PO
== END 2024-07-21 20:50 | disposition home or self-care (01) ==
LOC: ED 20:15
DX: F32.A Depression, unspecified (principal); F41.9 Anxiety disorder, unspecified; K21.9 Gastro-esophageal reflux disease without esophagitis; G43.909 Migraine, unspecified, not intractable, without status migrainosus; I10 Essential (primary) hypertension; F17.200 Nicotine dependence, unspecified, uncomplicated; Z88.5 Allergy status to narcotic agent; Z88.2 Allergy status to sulfonamides; Z88.8 Allergy status to other drugs, medicaments and biological substances; Z90.49 Acquired absence of other specified parts of digestive tract

== ENCOUNTER 2024-09-06 10:44 | Emergency (ER) | payer OTHER ==
[~2024-09-06] VITALS: Ht 167.6 cm; Wt 117.9 kg
[2024-09-06] MEDS ORDERED: HYDROCHLOROTH12.5 M3 PO (10:54)
[2024-09-06] MEDS ORDERED: CETIRIZINE HYDR10 MG PO (10:54)
[2024-09-06] MEDS ORDERED: NEURONTIN300 MG PO (10:54)
[2024-09-06 11:41] LABS: BASO # 0.1 10*3/uL (0.0-0.1); BASO % 0.8 % (0.0-1.0); EOS # 0.2 10*3/uL (0.0-0.4); EOS % 2.1 % (1.0-4.0); HEMATOCRIT 43.9 % (37.0-47.0); MEAN CELL VOLUME 90.1 fl (81.0-99.0); MEAN CORPUSCULAR HGB 29.4 pg (27.0-31.0); MEAN CORPUSCULAR HGB CONC 32.6 g/dl (33.0-37.0); MEAN PLATELET VOLUME 9.9 fl (9.6-12.3); MONO # 0.6 10*3/uL (0.1-1.0); MONO % 7.9 % (3.0-9.0); NEUT # 4.5 10*3/uL (2.3-7.9); NEUT % 61.4 % (47.0-73.0); PLATELET COUNT AUTOMATED 265 10*3/uL (130-400); RED BLOOD COUNT 4.87 10*6/uL (4.10-5.10); RED CELL DISTRI WIDTH 12.3 % (0-14.5); WHITE BLOOD COUNT 7.3 10*3/uL (4.8-10.8)
[2024-09-06 12:00] LABS: BUN 16 mg/dl (9-23); CHLORIDE 103 mmol/L (98-107); POTASSIUM 4.5 mmol/L (3.4-5.1)
[2024-09-06] MEDS ORDERED: PREDNISONE50 MG PO (12:28)
[2024-09-06] MEDS ORDERED: predniSONE 20 MG TAB PO ONE (12:30)
== END 2024-09-06 12:40 | disposition home or self-care (01) ==
LOC: ED 10:44
PROVIDERS: Nurse Practitioner Family
DX: S86.912A Strain of unspecified muscle(s) and tendon(s) at lower leg level, left leg, initial encounter (principal); F32.A Depression, unspecified; F41.9 Anxiety disorder, unspecified; K21.9 Gastro-esophageal reflux disease without esophagitis; I10 Essential (primary) hypertension; G43.909 Migraine, unspecified, not intractable, without status migrainosus; F17.200 Nicotine dependence, unspecified, uncomplicated; Z88.2 Allergy status to sulfonamides; Z88.5 Allergy status to narcotic agent; Z88.8 Allergy status to other drugs, medicaments and biological substances; Z90.49 Acquired absence of other specified parts of digestive tract; X58.XXXA Exposure to other specified factors, initial encounter; Y93.89 Activity, other specified; Y92.89 Other specified places as the place of occurrence of the external cause; Y99.8 Other external cause status

== ENCOUNTER → 2024-12-29 | Outpatient (CLI) | payer OTHER ==
[~2024-12-29] MED LIST changes: +CETIRIZINE HYDR10 MG PO; +HYDROCHLOROTH12.5 M3 PO; +NEURONTIN300 MG PO
== END | disposition home or self-care (01) ==
LOC: RAD 08:05
PROVIDERS: ATTEND Nurse Practitioner Family
DX: M25.512 Pain in left shoulder (principal)

== ENCOUNTER 2025-09-14 18:19 | Emergency (ER) | payer OTHER ==
[~2025-09-14] VITALS: Ht 170.1 cm; Wt 117.9 kg
== END 2025-09-14 20:20 | disposition home or self-care (01) ==
LOC: ED 18:19
DX: S96.912A Strain of unspecified muscle and tendon at ankle and foot level, left foot, initial encounter (principal); K21.9 Gastro-esophageal reflux disease without esophagitis; I10 Essential (primary) hypertension; G43.909 Migraine, unspecified, not intractable, without status migrainosus; F41.9 Anxiety disorder, unspecified; F32.A Depression, unspecified; F17.210 Nicotine dependence, cigarettes, uncomplicated; X58.XXXA Exposure to other specified factors, initial encounter; Y93.01 Activity, walking, marching and hiking; Y92.89 Other specified places as the place of occurrence of the external cause; Y99.8 Other external cause status